=== PATIENT | male | born 1945 | race Native Hawaiian/Other Pacific Islander ===

== ENCOUNTER → 2016-06-08 | Outpatient (CLI) | payer MEDICARE, OTHER ==
[~2016-06-08] MED LIST: BISM525O10 PO; CALC500T62 PO; FINA5TAB41 PO; FISH1CAP22 PO; HYDR-4172 PO; MULT-60 PO; OMEP10 PO
== END | disposition home or self-care (01) ==
LOC: RADMN 12:56
PROVIDERS: ATTEND Physical Medicine & Rehabilitation Spinal Cord Injury Medicine
DX: S46.002A Unspecified injury of muscle(s) and tendon(s) of the rotator cuff of left shoulder, initial encounter (principal)
CPT/HCPCS: 73221

== ENCOUNTER → 2016-09-04 | Outpatient (CLI) | payer MEDICARE, OTHER | END | disposition home or self-care (01) | LOC: RADPV 13:01 | PROVIDERS: ATTEND Internal Medicine | DX: I70.0 Atherosclerosis of aorta (principal) | CPT/HCPCS: 71020 ==

== ENCOUNTER → 2016-11-07 | Outpatient (CLI) | payer MEDICARE, OTHER | END | disposition home or self-care (01) | LOC: MSR 10:16 | PROVIDERS: ATTEND Podiatrist | DX: M19.071 Primary osteoarthritis, right ankle and foot (principal); M25.774 Osteophyte, right foot; M10.9 Gout, unspecified; M20.21 Hallux rigidus, right foot | CPT/HCPCS: 84550 ==

== ENCOUNTER → 2016-12-15 | Outpatient (CLI) | payer MEDICARE, OTHER ==
[~2016-12-15] MED LIST changes: +IOVERSOL 350 MG/ML 100 ML VIAL ONE; +SODIUM CHLORIDE 0.9% 100 ML ONE
== END | disposition home or self-care (01) ==
LOC: RADMN 09:05
PROVIDERS: ATTEND Internal Medicine
DX: K80.20 Calculus of gallbladder without cholecystitis without obstruction (principal); I70.0 Atherosclerosis of aorta; N40.0 Benign prostatic hyperplasia without lower urinary tract symptoms
CPT/HCPCS: 74177; J7050; Q9967

== ENCOUNTER 2017-10-19 00:36 | Emergency (ER) | payer MEDICARE, OTHER ==
[~2017-10-19] VITALS: Ht 172.7 cm; Wt 81.8 kg
[~2017-10-19 00:36] MED LIST changes: -IOVERSOL 350 MG/ML 100 ML VIAL ONE; -SODIUM CHLORIDE 0.9% 100 ML ONE
[2017-10-19 00:37] VITALS: BP 150/95
[2017-10-19] MEDS ORDERED: DEXAMETHASONE SOD PHOS 4 MG/ML 5 ML VIAL IM ONE (03:30)
== END 2017-10-19 03:40 | disposition home or self-care (01) ==
LOC: EMS 00:37
DX: T78.40XA Allergy, unspecified, initial encounter (principal); I10 Essential (primary) hypertension; K21.9 Gastro-esophageal reflux disease without esophagitis; X58.XXXA Exposure to other specified factors, initial encounter
CPT/HCPCS: 96372; 99283; J1100

== ENCOUNTER → 2018-03-28 | Outpatient (CLI) | payer MEDICARE, OTHER | END | disposition home or self-care (01) | LOC: RADPV 10:48 | PROVIDERS: ATTEND Internal Medicine | DX: I70.0 Atherosclerosis of aorta (principal) ==

== ENCOUNTER → 2018-11-28 | Outpatient (CLI) | payer MEDICARE, OTHER | END | disposition home or self-care (01) | LOC: RADPV 08:22 | PROVIDERS: ATTEND Internal Medicine | DX: K76.89 Other specified diseases of liver (principal); K82.4 Cholesterolosis of gallbladder; R77.1 Abnormality of globulin | CPT/HCPCS: 76700 ==

== ENCOUNTER 2019-03-01 09:25 | Emergency (ER) | payer MEDICARE, OTHER ==
[~2019-03-01] VITALS: Ht 172.7 cm; Wt 81.8 kg
[2019-03-01 09:26] VITALS: BP 137/81
== END 2019-03-01 13:26 | disposition home or self-care (01) ==
LOC: EMS 09:26
DX: L25.9 Unspecified contact dermatitis, unspecified cause (principal); K21.9 Gastro-esophageal reflux disease without esophagitis; I10 Essential (primary) hypertension

== ENCOUNTER 2019-07-08 10:38 | Emergency (ER) | payer MEDICARE, OTHER ==
[~2019-07-08] VITALS: Ht 172.7 cm; Wt 75.0 kg
[~2019-07-08 10:38] MED LIST changes: +FINA-27 PO; -FINA5TAB41 PO
[2019-07-08] MEDS ORDERED: ZITHROMAX PO (10:46)
[2019-07-08] MEDS ORDERED: NAPR220C15 PO (10:46)
[2019-07-08 13:55] VITALS: BP 121/76
== END 2019-07-08 14:00 | disposition home or self-care (01) ==
LOC: EMS 10:39
DX: J40 Bronchitis, not specified as acute or chronic (principal); K21.9 Gastro-esophageal reflux disease without esophagitis; I10 Essential (primary) hypertension; Z03.818 Encounter for observation for suspected exposure to other biological agents ruled out
CPT/HCPCS: 87635

== ENCOUNTER 2019-12-20 07:30 | Emergency (ER) | payer MEDICARE, OTHER ==
[~2019-12-20] VITALS: Ht 182.9 cm; Wt 100.0 kg
[~2019-12-20 07:30] MED LIST changes: -BISM525O10 PO; -FINA-27 PO; +NAPR220C15 PO; +ZITHROMAX PO
[2019-12-20] MEDS ORDERED: DEXAMETHASONE 4 MG TABLET PO ONE (09:15)
[2019-12-20] MEDS ORDERED: FAMOTIDINE 20 MG TABLET PO ONE (09:15)
[2019-12-20 09:36] VITALS: BP 128/71
== END 2019-12-20 09:39 | disposition home or self-care (01) ==
LOC: EMS 07:32
DX: R21 Rash and other nonspecific skin eruption (principal); K21.9 Gastro-esophageal reflux disease without esophagitis; I10 Essential (primary) hypertension
CPT/HCPCS: 99283; J8540

== ENCOUNTER → 2022-01-03 | Outpatient (CLI) | payer MEDICARE, OTHER ==
[~2022-01-03] VITALS: Ht 172.7 cm; Wt 82.0 kg
[~2022-01-03] MED LIST changes: +AMLO5TAB66 PO; +DICL250C PO; +OMEP20CA12 PO; +PRAM0.5T3 PO; +SIMV10TA97 PO; +TAMS-13 PO
[2022-01-03 14:39] VITALS: BP 125/67
== END | disposition home or self-care (01) ==
LOC: SRCNTR 14:30
PROVIDERS: ATTEND Internal Medicine
DX: Z01.810 Encounter for preprocedural cardiovascular examination (principal); R00.0 Tachycardia, unspecified; J32.9 Chronic sinusitis, unspecified; I10 Essential (primary) hypertension; E78.5 Hyperlipidemia, unspecified; H53.8 Other visual disturbances; F10.10 Alcohol abuse, uncomplicated; N40.0 Benign prostatic hyperplasia without lower urinary tract symptoms; Z79.899 Other long term (current) drug therapy
CPT/HCPCS: G0463

== ENCOUNTER → 2022-08-22 | Outpatient (CLI) | payer MEDICARE, OTHER ==
[~2022-08-22] MED LIST changes: -FISH1CAP22 PO; -HYDR-4172 PO; -NAPR220C15 PO; -OMEP10 PO; -ZITHROMAX PO
== END | disposition home or self-care (01) ==
LOC: RADMN 09:52
PROVIDERS: ATTEND Internal Medicine
DX: R76.12 Nonspecific reaction to cell mediated immunity measurement of gamma interferon antigen response without active tuberculosis (principal); Z20.1 Contact with and (suspected) exposure to tuberculosis; M47.814 Spondylosis without myelopathy or radiculopathy, thoracic region
CPT/HCPCS: 71046

== ENCOUNTER → 2022-08-31 | Outpatient (CLI) | payer MEDICARE, OTHER | END | disposition home or self-care (01) | LOC: RADMN 10:42 | PROVIDERS: ATTEND Internal Medicine | DX: M17.11 Unilateral primary osteoarthritis, right knee (principal); M25.761 Osteophyte, right knee; M76.9 Unspecified enthesopathy, lower limb, excluding foot; M25.561 Pain in right knee | CPT/HCPCS: 73562-TC ==

== ENCOUNTER → 2023-10-16 | Outpatient (CLI) | payer MEDICARE, OTHER ==
[~2023-10-16] MED LIST changes: -TAMS-13 PO; +TAMS0.4C94 PO
== END | disposition home or self-care (01) ==
LOC: RADMN 09:56
PROVIDERS: ATTEND Physical Medicine & Rehabilitation Spinal Cord Injury Medicine
DX: J44.9 Chronic obstructive pulmonary disease, unspecified (principal); R05.9 Cough, unspecified
CPT/HCPCS: 71046

== ENCOUNTER 2025-04-11 00:58 | Emergency (ER) | payer MEDICARE, OTHER ==
[~2025-04-11] VITALS: Ht 172.7 cm; Wt 81.8 kg
[~2025-04-11 00:58] MED LIST changes: -AMLO5TAB66 PO; +APIX5TAB PO; +ATOR10TA69 PO; -DICL250C PO; +METO-408 PO; -SIMV10TA97 PO
[2025-04-11 01:01] VITALS: TEMP 97.7
[2025-04-11 01:39] VITALS: BP 111/86; PULSE 85; RESP 16; O2SAT 100
[2025-04-11] MEDS ORDERED: PRED-554 PO (02:52)
== END 2025-04-11 03:01 | disposition home or self-care (01) ==
LOC: EMS 00:58
DX: L29.9 Pruritus, unspecified (principal); I10 Essential (primary) hypertension; Z79.01 Long term (current) use of anticoagulants; Z79.899 Other long term (current) drug therapy
CPT/HCPCS: 99283; J7512